=== PATIENT | female | born 1995 | race Caucasian/White ===

== ENCOUNTER 2023-04-26 10:06 | Emergency (ER) | payer SELFPAY ==
[2023-04-26 10:40] LABS: #Eosinphils 0.1 10x3/uL (0.0-0.5); #Monocytes 0.7 10x3/uL (0.0-1.1); #Neutrophils 6.3 10x3/uL (1.5-8.4); %Basophils 0.2 % (0.0-2.0); %Eosinophils 0.9 % (0.0-6.0); %Lymphocytes 26.7 % (18.0-47.0); %Monocytes 6.8 % (0.0-10.0); %Neutrophils 65.1 % (40.0-75.0); Hemoglobin 11.9 g/dL (12.0-15.5); Mean Corpuscular HGB CONC 33.1 g/dL (32.0-36.0); Mean Corpuscular Hemoglobin 29.7 pg (27.0-33.0); Mean Corpuscular Volume 89.5 fl (81.6-98.3); Mean Platelet Volume 9.8 fl (7.4-10.4); Platelet Count 309 10x3/uL (150-450); RBC Distribution Width 12.8 % (11.5-14.5); Red Blood Cell (RBC) Count 4.01 10x6/uL (3.90-5.03); White Blood Cell (WBC) Count 9.7 10x3/uL (3.5-10.5)
[2023-04-26] MEDS ORDERED: Acetaminophen 500 MG TAB ONE (10:47)
[2023-04-26 10:50] LABS: ALT (SGPT) 11 U/L (8-55); AST (SGOT) 18 U/L (5-34); Albumin 4.1 g/dL (3.5-5.0); Alkaline Phosphatase 44 U/L (40-110); Anion Gap 13 mmol/L (10-20); BUN (Urea Nitrogen) 7 mg/dL (7.0-18.7); Bilirubin, Total 0.3 mg/dL (0.2-1.2); Calc. Creatinine Clearance 0 mL/min (70-130); Calcium 9.5 mg/dL (7.8-10.44); Carbon Dioxide 21 mmol/L (22-29); Chloride 106 mmol/L (98-107); Estimated GFR 123; Globulin 3.2 g/dL (2.4-3.5); Glucose 88 mg/dL (70-105); Potassium 4.1 mmol/L (3.5-5.1); Protein, Total 7.3 g/dL (6.0-8.3); Sodium 136 mmol/L (136-145)
[2023-04-26] MEDS ORDERED: Ondansetron PF 4 MG/2 ML Vial ONE (11:02)
== END 2023-04-26 12:22 | disposition home or self-care (01) ==
LOC: CSHERS 10:06
DX: O20.0 Threatened abortion (principal); E86.0 Dehydration; Z3A.09 9 weeks gestation of pregnancy
CPT/HCPCS: 36415; 76856; 80053; 84702; 85025; 86850; 86900; 86901; 96361; 96374; J2405

== ENCOUNTER 2023-07-30 14:04 | Outpatient (CLI) | payer OTHER | END 2023-07-30 14:05 | disposition home or self-care (01) | LOC: CSHULT 14:04 | PROVIDERS: ATTEND Family Medicine | DX: Z34.82 Encounter for supervision of other normal pregnancy, second trimester (principal); Z3A.22 22 weeks gestation of pregnancy | CPT/HCPCS: 76805 ==

== ENCOUNTER 2023-11-08 11:02 | Inpatient (IN) | payer MEDICAID, OTHER, SELFPAY ==
[2023-11-08] MEDS ORDERED: Promethazine HCl 25 MG/ML VIAL IM PRN ×2 (12:03→19:57)
[2023-11-08] MEDS ORDERED: Carboprost 250 MCG/ML AMP IM PRN (12:03)
[2023-11-08] MEDS ORDERED: Misoprostol 200 MCG TAB PR PRN (12:03)
[2023-11-08] MEDS ORDERED: Diphenoxylate HCl/Atropine Tablet PO PRN (12:03)
[2023-11-08] MEDS ORDERED: fentaNYL 50 mcg/mL 1 mL Vial SLOW IVP PRN (12:03)
[2023-11-08] MEDS ORDERED: Ibuprofen 800 MG TAB PO PRN (12:03)
[2023-11-08] MEDS ORDERED: Lidocaine 1% (PF) 30 ML VIAL SC PRN (12:03)
[2023-11-08] MEDS ORDERED: Acetaminophen 500 MG TAB PO PRN (12:03)
[2023-11-08] MEDS ORDERED: Ondansetron PF 4 MG/2 ML Vial IVP PRN ×2 (12:03→19:57)
[2023-11-08] MEDS ORDERED: Methylergonovine 0.2 MG/ML VIAL IM PRN (12:03)
[2023-11-08] MEDS ORDERED: Tranexamic Acid 1,000 MG/10 ML VIAL IVP PRN (12:03)
[2023-11-08] MEDS ORDERED: HYDROcodone/Acetaminophen 5/325 mg Tablet PO PRN (12:03)
[2023-11-08] MEDS ORDERED: hydrALAZINE 20 MG/ML VIAL SLOW IVP PRN ×2 (12:03→19:57)
[2023-11-08] MEDS ORDERED: Lactated Ringer's 1,000 ML IV SCH (12:15)
[2023-11-08] MEDS ORDERED: Oxytocin 30 units/NS 500 ML 500 ML IV SCH ×4 (12:15→20:00)
[2023-11-08 12:30] LABS: Fetal Membranes Rupture RUPTURE DETECTED (No Rupture)
[2023-11-08 12:32] VITALS: BMI 31.2
[2023-11-08 13:12] LABS: Hematocrit 36.8 % (34.9-44.5); Hemoglobin 12.4 g/dL (12.0-15.5); Mean Corpuscular HGB CONC 33.7 g/dL (32.0-36.0); Mean Corpuscular Hemoglobin 28.6 pg (27.0-33.0); Mean Corpuscular Volume 84.8 fl (81.6-98.3); Mean Platelet Volume 10.6 fl (7.4-10.4); Platelet Count 330 10x3/uL (150-450); RBC Distribution Width 15.6 % (11.5-14.5); Red Blood Cell (RBC) Count 4.34 10x6/uL (3.90-5.03)
[2023-11-08 14:03] LABS: HBSAg Index 0.18 S/CO (0-0.99); Hep B Surf Ag - L&D Non-Reactive S/CO (NonReactive)
[2023-11-08 14:04] LABS: Syphilis Antibody Nonreactive (Nonreactive); Syphilis Antibody Index 0.06 S/CO (<1.00 Non-Reactive)
[2023-11-08] MEDS ORDERED: Penicillin G Potassium 5 MILL.UNITS VIAL ONE (14:07)
[2023-11-08] MEDS ORDERED: Boostrix 0.5 ML (Tdap) VIAL (>/=7 yrs of age) IM ONE (19:57)
[2023-11-08] MEDS ORDERED: Lanolin Ointment 7 GM TUBE TOP PRN (19:57)
[2023-11-08] MEDS ORDERED: Milk Of Magnesia 30 ML UDCUP PO PRN (19:57)
[2023-11-08] MEDS ORDERED: Bisacodyl 10 MG SUPP PR PRN (19:57)
[2023-11-08] MEDS ORDERED: diphenhydrAMINE 25 MG CAP PO PRN (19:57)
[2023-11-08] MEDS: Docusate 100 MG CAP PO SCH (21:05)
[2023-11-09] MEDS: HYDROcodone/Acetaminophen 5/325 mg Tablet PO PRN ×2 (00:18→20:23)
[2023-11-09] MEDS: Ibuprofen 800 MG TAB PO SCH ×3 (05:11→20:23)
[2023-11-09] MEDS: Ferrous Sulfate 325 MG TAB PO SCH ×2 (07:25→14:55)
[2023-11-09] MEDS: Docusate 100 MG CAP PO SCH ×2 (08:15→20:23)
[2023-11-09] MEDS: Prenatal Vitamin 1 TAB PO SCH (08:15)
[2023-11-10] MEDS: Ibuprofen 800 MG TAB PO SCH ×2 (05:49→14:13)
[2023-11-10] MEDS: Ferrous Sulfate 325 MG TAB PO SCH ×2 (07:06→16:08)
[2023-11-10 07:40] VITALS: BP 124/90; TEMP 99.5
[2023-11-10] MEDS: Prenatal Vitamin 1 TAB PO SCH (08:12)
[2023-11-10] MEDS: Docusate 100 MG CAP PO SCH (08:12)
== END 2023-11-10 17:55 | disposition home or self-care (01) | DRG 807 ==
LOC: CSHLD/OP 11:02 → CSHLD 16:07 → CSHPP 19:55
PROVIDERS: ADMIT Family Medicine; ATTEND Family Medicine
PROC: 10E0XZZ Delivery of Products of Conception, External Approach (ICD-10-PCS; principal; 2023-11-08)
PROC: 10907ZC Drainage of Amniotic Fluid, Therapeutic from Products of Conception, Via Natural or Artificial Opening (ICD-10-PCS; 2023-11-08)
DX: O42.02 Full-term premature rupture of membranes, onset of labor within 24 hours of rupture (principal); Z37.0 Single live birth; Z3A.37 37 weeks gestation of pregnancy; O99.824 Streptococcus B carrier state complicating childbirth; O69.81X0 Labor and delivery complicated by cord around neck, without compression, not applicable or unspecified
CPT/HCPCS: 84112; 85027; 86780; 86850; 86900; 86901; 87340; 99285; J2540; J2590; J3010